=== PATIENT | male | born 1990 | race Two or more races ===

== ENCOUNTER 2022-08-19 11:25 | Emergency (ER) | payer MEDICAID ==
[~2022-08-19] VITALS: Ht 172.7 cm; Wt 95.0 kg
[2022-08-19 11:35] VITALS: BP 125/86
[2022-08-19] MEDS ORDERED: ACETAMINOPHEN 325MG TABLET PO STA (12:04)
[2022-08-19 12:32] LABS: BASOPHILS % 2.9 % (0.0-2.0); EOSINOPHILS % 3.5 % (0.0-5.0); HEMATOCRIT. 43.9 % (42.0-52.0); HEMOGLOBIN. 14.9 g/dL (14.0-18.0); LYMPHOCYTES % 24.5 % (20.0-50.0); MEAN CORPUSCULAR HEMOGLOBIN 27.8 pg (28.0-32.0); MEAN CORPUSCULAR VOLUME 81.8 fL (80.0-94.0); MEAN PLATELET VOLUME 11.5 fl (7.4-10.4); MONOCYTES % 8.9 % (2.0-8.0); NEUTROPHILS % 60.2 % (40.0-76.0); PLATELET 155 x1000/uL (130-400); RED BLOOD CELL COUNT 5.37 mill/uL (4.7-6.1); RED CELL DISTRIBUTION WIDTH 13.8 % (11.6-14.6)
[2022-08-19 12:36] LABS: CHLORIDE 109 mEq/L (98-107)
[2022-08-19] MEDS ORDERED: IBUP-2028 MT (14:20)
== END 2022-08-19 14:35 | disposition home or self-care (01) ==
LOC: ER 11:25
DX: K80.20 Calculus of gallbladder without cholecystitis without obstruction (principal); K76.0 Fatty (change of) liver, not elsewhere classified; R03.0 Elevated blood-pressure reading, without diagnosis of hypertension
CPT/HCPCS: 36415; 76700; 80053; 85025; 99284